=== PATIENT | female | born 1975 | race African-American/Black ===

== ENCOUNTER 2017-05-03 22:20 | Emergency (ER) | payer MEDICAID ==
[~2017-05-03] VITALS: Ht 162.6 cm; Wt 76.2 kg
--- NOTE | ~2017-05-03 | EKG ---
PATIENT: HOWIE WILLIAMSON UNIT #: [id number] Ventricular Rate: 65 BPM Atrial Rate: 65 BPM P-R Interval: 158 ms QRS Duration: 78 ms Q-T Interval: 398 ms QTC Calculation(Bezet): 413 ms P [place]: 49 degrees Calculated R [place]: 15 degrees Calculated T [place]: 19 degrees Diagnosis Line: Normal sinus rhythm Diagnosis Line: Normal ECG Diagnosis Line: No previous ECGs available Diagnosis Line: Confirmed by KEIKO MEDRANO MD ([id number]) on Diagnosis Line: 05/06/2017 7:26:23 AM INTERPRETING MD: MARCELA LAMA
== END 2017-05-04 01:01 | disposition home or self-care (01) ==
LOC: CED 22:20
DX: Z53.21 Procedure and treatment not carried out due to patient leaving prior to being seen by health care provider (principal)
CPT/HCPCS: 93005